=== PATIENT | male | born 1955 | race Caucasian/White ===

== ENCOUNTER 2016-04-08 13:48 | Emergency (ER) | payer OTHER ==
[~2016-04-08] VITALS: Ht 185.4 cm; Wt 96.0 kg
[2016-04-08] VITALS (7 sets, daily range): BP systolic 144–202; BP diastolic 62–98; PULSE 66–96; RESP 14–18; TEMP 98.2; O2SAT 97–99
[~2016-04-08 13:48] MED LIST: ALL5TAB5 PO; CIPR5SUS; FLUT1SPR9; PRED20 PO; SOOTDRO2 RIGHT EYE; VALA500T PO
[2016-04-08] MEDS ORDERED: ALPR.25 PO (16:08)
--- NOTE | 2016-04-08 16:21 | PD ---
HPI Chief Complaint: Back/ Neck Pain or Injury Time Seen by Provider: 16:18 Travel History International Travel<30 days: No Contact w/Intl Traveler<30days: No Traveled to known affect area: No History of Present Illness HPI 60-year-old male came to the emergency room with history of hypertension. Patient has been having neck pain for past week and a half. He has history of cervical DJD which has flared up over past week and a half when he was lifting some heavy boxes. Since then the pain has been progressively worsening. He is having trouble moving his head due to the pain. This morning he went to the urgent care for it. They sent him home with prescription of steroid and Motrin. However when they did the vital signs his blood pressure was 185 systolic. They mentioned to him about the blood pressure and asked him to keep a check on it. Patient brought a blood pressure machine from pharmacy and went home and checked and it was 177. Being concerned he came to the emergency room. Patient's blood pressure was 200 systolic in triage. He does not have a known history of hypertension. No history of chest pain or blurred vision. He seems anxious and in discomfort from his neck. Patient has been taking at home Advil for his neck pain for past week and a half. He is wearing a soft collar that he bought from the pharmacy to relieve his neck pain. [facility] Past Medical History Narrative Medical List of his past medical history as reviewed from the nursing note. 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 Reported Meds & Prescriptions Reported Meds & Active Scripts Active Flexeril (Cyclobenzaprine HCl) 10 Mg Tab 10 Mg PO TID Percocet (Oxycodone-Acetaminophen) 5-325 mg Tab 1 Tab PO Q6H PRN Reported Xanax (Alprazolam) 0.25 Mg Tab 0.25 Mg PO Q8H PRN Narrative Medication List of his home medications reviewed from the nursing note. Review of Systems Except as stated in HPI: all other systems reviewed are Neg Physical Exam Narrative GENERAL: Awake, alert, anxious, moderate distress SKIN: Warm and dry. HEAD: Atraumatic. Normocephalic. EYES: Pupils equal and round. No scleral icterus. No injection or drainage. ENT: No nasal bleeding or discharge. Mucous membranes pink and moist. NECK: Trachea midline. No JVD. There is a soft tissue swelling on the base of his neck on the right side. This is nonpulsatile, soft, no bruit, nontender CARDIOVASCULAR: Regular rate and rhythm. No murmur appreciated. RESPIRATORY: No accessory muscle use. Clear to auscultation. Breath sounds equal bilaterally. GASTROINTESTINAL: Abdomen soft, non-tender, nondistended. Hepatic and splenic margins not palpable. MUSCULOSKELETAL: No obvious deformities. No clubbing. No cyanosis. No edema. Torticollis of his neck with restricted range of motion due to pain. NEUROLOGICAL: Awake and alert. No obvious cranial nerve deficits. Motor grossly within normal limits. Normal speech. 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 Data Data Last Documented VS Vital Signs Date Time Temp Pulse Resp B/P Pulse Ox O2 Delivery O2 Flow Rate FiO2 04/08/16 21:10 16 04/08/16 20:44 76 146/86 98 Room Air 04/08/16 13:51 98.2 Orders Complete Blood Count With Diff (04/08/16 16:39) Basic Metabolic Panel (Bmp) (04/08/16 16:39) Ct Cerv Spine W/O Contrast (04/08/16 ) Metoprolol Tartrate (Lopressor) (04/08/16 16:45) Sodium Chlorid 0.9% 500 Ml Inj (Ns 500 M (04/08/16 16:45) Acetamin-Hydrocod 325-5 Mg ([place] 5-325 (04/08/16 16:45) Mri C Spine W/O Contrast (04/08/16 ) Labs Laboratory Tests Test 04/08/16 16:44 White Blood Count 8.8 TH/MM3 Red Blood Count 4.96 MIL/MM3 Hemoglobin 14.9 GM/DL Hematocrit 43.6 % Mean Corpuscular Volume 87.8 FL Mean Corpuscular Hemoglobin 29.9 PG Mean Corpuscular Hemoglobin 34.1 % Concent Red Cell Distribution Width 13.6 % Platelet Count 279 TH/MM3 Mean Platelet Volume 9.0 FL Neutrophils (%) (Auto) 88.4 % Lymphocytes (%) (Auto) 9.3 % Monocytes (%) (Auto) 1.8 % Eosinophils (%) (Auto) 0.1 % Basophils (%) (Auto) 0.4 % Neutrophils # (Auto) 7.8 TH/MM3 Lymphocytes # (Auto) 0.8 TH/MM3 Monocytes # (Auto) 0.2 TH/MM3 Eosinophils # (Auto) 0.0 TH/MM3 Basophils # (Auto) 0.0 TH/MM3 CBC Comment DIFF FINAL Differential Comment Sodium Level 137 MEQ/L Potassium Level 4.3 MEQ/L Chloride Level 105 MEQ/L Carbon Dioxide Level 26.8 MEQ/L Anion Gap 5 MEQ/L Blood Urea Nitrogen 19 MG/DL Creatinine 1.01 MG/DL Estimat Glomerular Filtration 76 ML/MIN Rate Random Glucose 103 MG/DL Calcium Level 9.4 MG/DL MDM Medical Decision Making Medical Screen Exam Complete: Yes Emergency Medical Condition: Yes Medical Record Reviewed: Yes Differential Diagnosis Essential hypertension, anxiety, herniated disc of C-spine, DJD of C-spine Narrative Course 5:24 PM awaiting for the blood tests and CT scan. Case is signed over to the oncoming ER physician. Procedures EKG Prior to Arrival: No Scripts Cyclobenzaprine (Flexeril)10 Mg Tab10 Mg PO TID #20 TAB Ref 0 Prov:Glenn Britton MD 04/08/16 Oxycodone-Acetaminophen (Percocet)5-325 mg Tab1 Tab PO Q6H PRN (PAIN) #15 TAB Ref 0 Prov:Glenn Britton MD 04/08/16 Rita Murillo MD Apr 08, 2016 16:21
[2016-04-08] MEDS ORDERED: METOPROLOL TARTRATE 25 MG TAB PO ONE (16:45)
[2016-04-08] MEDS ORDERED: SODIUM CHLORID 0.9% 500 ML INJ 500 ML IV ONE (16:45)
[2016-04-08] MEDS ORDERED: ACETAMINOPHEN/HYDROcodone 325 MG/5 MG TAB PO ONE (16:45)
[2016-04-08 17:02] LABS: AUTOMATED NEUTROPHIL # 7.8 TH/MM3 (1.8-7.7); BASOPHIL % 0.4 % (0.0-2.0); EOSINOPHIL % 0.1 % (0.0-4.0); HEMATOCRIT 43.6 % (39.0-51.0); HEMO FLAGS DIFF FINAL; LYMPH % 9.3 % (9.0-44.0); LYMPHOCYTE # 0.8 TH/MM3 (1.0-4.8); MEAN CELL VOLUME 87.8 FL (80.0-100.0); MEAN CORPUSCULAR HEMOGLOBIN 29.9 PG (27.0-34.0); MEAN CORPUSCULAR HGB CONC 34.1 % (32.0-36.0); MONO % 1.8 % (0.0-8.0); NEUT % 88.4 % (16.0-70.0); PLATELET COUNT 279 TH/MM3 (150-450); RED BLOOD COUNT 4.96 MIL/MM3 (4.50-5.90); RED CELL DISTRIBUTION WIDTH 13.6 % (11.6-17.2); WHITE BLOOD COUNT 8.8 TH/MM3 (4.0-11.0)
--- NOTE | 2016-04-08 17:20 | RADRPT ---
EXAM DATE/TIME: 04/08/2016 16:59 [facility] COMPARISON: No previous studies available for comparison. INDICATIONS : High blood pressure with neck pain. RADIATION DOSE: 21.50 CTDIvol (mGy) MEDICAL HISTORY : Cerebrovascular disease. Hepatitis A. Wilber Palsy. SURGICAL HISTORY : None. ENCOUNTER: Initial ACUITY: 1 day PAIN SCALE: 5/10 LOCATION: neck TECHNIQUE: Volumetric scanning of the cervical spine was performed. Multiplanar reconstructions in the sagittal, coronal and oblique axial planes were performed. Using automated exposure control and adjustment o f the mA and/or kV according to patient size, radiation dose was kept as low as reasonably achievable to obtain optimal diagnostic quality images. FINDINGS: VERTEBRAE: Normal vertebral body height. DISCS: There are mild degenerative changes at the C5-6 level with mild disc space narrowing and slight anter ior spurring. ALIGNMENT: No evidence of subluxation. C2-C3: The bony spinal canal is normal in size. No evidence of disc bulge or herniation. The neural forami na are bilaterally patent. C3-C4: There is a large apparent broad-based disc protrusion greatest in the right parasagittal region measu ring up to approximately 1.5 cm across the base and a 5-6 mm in AP diameter with mass effect on the r ight side of the thecal sac. The neural foramina are patent. C4-C5: There is a moderate sized posterior central protrusion measuring approximately 1 cm across the base a nd 3-4 mm in AP diameter with mass effect on the anterior thecal sac. Neural foramina are patent. C5-C6: There is a mild disc osteophyte complex with mild flattening of the anterior thecal sac. The neural f oramina are bilaterally patent. C6-C7: The bony spinal canal is normal in size. No evidence of disc bulge or herniation. The neural forami na are bilaterally patent. C7-T1: The bony spinal canal is normal in size. No evidence of disc bulge or herniation. The neural forami na are bilaterally patent. CONCLUSION: 1. Large posterior central and right paracentral protrusion at the C3-4 level with mass effect on the right side of the thecal sac. 2. Moderate sized posterior central protrusion at C4-5 with mass effect on the anterior thecal sac. 3. Mild disc osteophyte complex at C5-6 with mild mass effect on the anterior thecal sac. Diego Mccormick MD on April 08, 2016 at 17:12 Board Certified Radiologist. This report was verified electronically.
[2016-04-08 17:29] LABS: BICARBONATE 26.8 MEQ/L (21.0-32.0); POTASSIUM 4.3 MEQ/L (3.5-5.1)
--- NOTE | 2016-04-08 18:23 | PD ---
Data Data Last Documented VS Vital Signs Date Time Temp Pulse Resp B/P Pulse Ox O2 Delivery O2 Flow Rate FiO2 04/08/16 20:44 76 16 146/86 98 Room Air 04/08/16 13:51 98.2 Orders Complete Blood Count With Diff (04/08/16 16:39) Basic Metabolic Panel (Bmp) (04/08/16 16:39) Ct Cerv Spine W/O Contrast (04/08/16 ) Metoprolol Tartrate (Lopressor) (04/08/16 16:45) Sodium Chlorid 0.9% 500 Ml Inj (Ns 500 M (04/08/16 16:45) Acetamin-Hydrocod 325-5 Mg ([place] 5-325 (04/08/16 16:45) Mri C Spine W/O Contrast (04/08/16 ) Labs Laboratory Tests Test 04/08/16 16:44 White Blood Count 8.8 TH/MM3 Red Blood Count 4.96 MIL/MM3 Hemoglobin 14.9 GM/DL Hematocrit 43.6 % Mean Corpuscular Volume 87.8 FL Mean Corpuscular Hemoglobin 29.9 PG Mean Corpuscular Hemoglobin 34.1 % Concent Red Cell Distribution Width 13.6 % Platelet Count 279 TH/MM3 Mean Platelet Volume 9.0 FL Neutrophils (%) (Auto) 88.4 % Lymphocytes (%) (Auto) 9.3 % Monocytes (%) (Auto) 1.8 % Eosinophils (%) (Auto) 0.1 % Basophils (%) (Auto) 0.4 % Neutrophils # (Auto) 7.8 TH/MM3 Lymphocytes # (Auto) 0.8 TH/MM3 Monocytes # (Auto) 0.2 TH/MM3 Eosinophils # (Auto) 0.0 TH/MM3 Basophils # (Auto) 0.0 TH/MM3 CBC Comment DIFF FINAL Differential Comment Sodium Level 137 MEQ/L Potassium Level 4.3 MEQ/L Chloride Level 105 MEQ/L Carbon Dioxide Level 26.8 MEQ/L Anion Gap 5 MEQ/L Blood Urea Nitrogen 19 MG/DL Creatinine 1.01 MG/DL Estimat Glomerular Filtration 76 ML/MIN Rate Random Glucose 103 MG/DL Calcium Level 9.4 MG/DL MDM Supervised Visit with GIGI: No Narrative Course The patient was initially evaluated by the previous provider and signed out to me at the beginning of my shift pending labs, CT neck, and disposition. See her note for further details. Briefly this is a 60-year-old male who initially went to an urgent care facility for 1.5 weeks of neck pain. The patient reportedly has history of severe degenerative disc disease in his neck which she was told about 5 years ago at another institution and was told that he should have surgery for it. About 1.5 weeks ago the patient was lifting some heavy boxes and since then he has been having worsening neck pain. He occasionally has paresthesias down his left arm. No arm weakness. At the urgent care facility they gave him steroids and ibuprofen, however they noticed his blood pressure was elevated and referred him to the emergency department for further evaluation. Patient denies history of hypertension and is not on any antihypertensive medications. He was given a dose of Lopressor by the previous provider. He has been taking a significant amount of ibuprofen for his neck pain and there was concern for some renal insufficiency. Initial vital signs show heart rate 96, blood pressure 202/98, pulse ox 97% on room air, oral temp of 98.2F. Blood pressure improved to 160/67 after Lopressor. On my exam the patient is resting comfortably. There are no focal neurologic deficits. No nuchal rigidity. He has not had fever. CBC shows WBC 8.8, hemoglobin 14.9, hematocrit 43.6, platelets 279, neutrophils 88%. BMP is markable for BUN 19, creatinine 1.01, GFR 76, otherwise unremarkable. CT cervical spine without contrast: CONCLUSION: 1. Large posterior central and right paracentral protrusion at the C3-4 level with mass effect on the right side of the thecal sac. 2. Moderate sized posterior central protrusion at C4-5 with mass effect on the anterior thecal sac. 3. Mild disc osteophyte complex at C5-6 with mild mass effect on the anterior thecal sac. The patient was made aware of all findings. Case discussed with on-call neurosurgical attending Dr. Aguero who recommends MRI of the C-spine for further investigation. The patient is amenable to this plan. MRI C spine: CONCLUSION: 1. At C3-4 there is a fairly large broad-based right paracentral disc protrusion with compression of the right hemicord. 2. At C4-5 there is a focal central disc protrusion with mild compression on the anterior surface of the cord. 3. At C5-6 there is a mild right paracentral disc protrusion with mild AP canal stenosis and minimal cord flattening. 4. At C6-7 is a broad-based posterior disc protrusion with mild AP canal stenosis and mild flattening of the cord. 5. No fracture or spondylolisthesis. No definite cord signal abnormalities Case discussed again with on-call neurosurgical attending Dr. Aguero. Patient is actually feeling a lot better after receiving pain medication. He has normal muscle strength in bilateral upper extremities and normal hand flesher strength. No paresthesias. No nuchal rigidity. At this point Dr. Aguero recommends starting the patient on a Medrol Dosepak and muscle relaxants and follow-up with him in his office this week as an outpatient. The patient already has a prescription for Medrol Dosepak that was given to him at the urgent care facility today. I will give him a prescription for muscle relaxant and pain medication. He was made aware of all findings and is amenable to the plan. He was informed on when to return to the emergency department. Diagnosis Primary Impression: Cervical neck pain with evidence of disc disease Additional Impression: Elevated blood pressure reading Referrals: Prasanna Aguero MD 1 week Primary Care Physician 3 days Additional Instruction: Follow-up with neurosurgeon Dr. Aguero this week. Follow-up with your primary care physician regarding your elevated blood pressure. Return to the emergency department forcing symptoms or any other concerns as discussed. Scripts Cyclobenzaprine (Flexeril)10 Mg Tab10 Mg PO TID #20 TAB Ref 0 Prov:Glenn Britton MD 04/08/16 Oxycodone-Acetaminophen (Percocet)5-325 mg Tab1 Tab PO Q6H PRN (PAIN) #15 TAB Ref 0 Prov:Glenn Britton MD 04/08/16 Disposition: 01 DISCHARGE HOME Condition: Stable Glenn Britton MD Apr 08, 2016 18:22
--- NOTE | 2016-04-08 20:36 | RADRPT ---
EXAM DATE/TIME: 04/08/2016 19:15 [facility] COMPARISON: No previous studies available for comparison. INDICATIONS : Pain. NKI. MEDICAL HISTORY : Hypertension. Cancino's palsy. SURGICAL HISTORY : None. ENCOUNTER: Initial ACUITY: 1 day PAIN SCORE: 0/10 LOCATION: neck TECHNIQUE: Multiplanar, multisequence MRI examination of the cervical spine was performed. FINDINGS: VERTEBRAE: Normal vertebral body height. Homogeneous marrow signal. ALIGNMENT: No evidence of subluxation. CORD: Normal configuration and signal. POST FOSSA: The cerebellar tonsils are normal in position. C2-C3: The thecal sac has a normal configuration. There is no evidence of disc herniation or spinal canal s tenosis. The neural foramina are patent bilaterally. C3-C4: There is a large right-sided paracentral disc protrusion with lateral recess stenosis and compression on the anterior cord, especially the right hemicord. C4-C5: There is a moderate central disc protrusion with mild impression on the anterior surface of the cord. C5-C6: Mild right paracentral disc protrusion is mild stenosis of the right lateral recess. Mild AP canal st enosis. C6-C7: Broad-based posterior disc protrusion with mild impression on the anterior cord and mild AP canal sammy nosis. C7-T1: The thecal sac has a normal configuration. There is no evidence of disc herniation or spinal canal s tenosis. The neural foramina are patent bilaterally. CONCLUSION: 1. At C3-4 there is a fairly large broad-based right paracentral disc protrusion with compression of the right hemicord. 2. At C4-5 there is a focal central disc protrusion with mild compression on the anterior surface of the cord. 3. At C5-6 there is a mild right paracentral disc protrusion with mild AP canal stenosis and minimal cord flattening. 4. At C6-7 is a broad-based posterior disc protrusion with mild AP canal stenosis and mild flattening of the cord. 5. No fracture or spondylolisthesis. No definite cord signal abnormalities Severo Whaley MD on April 08, 2016 at 20:28 Board Certified Radiologist. This report was verified electronically.
[2016-04-08] MEDS ORDERED: CYCL1TAB29 PO (21:01)
[2016-04-08] MEDS ORDERED: PERC5TAB12 PO (21:01)
[2016-04-23] MEDS ORDERED: IBUP200C PO (12:42)
[2016-04-23] MEDS ORDERED: LISI10TA3 PO (12:42)
== END 2016-04-08 21:25 | disposition home or self-care (01) ==
LOC: NEPD 13:48 → NEPB 21:25
DX: R03.0 Elevated blood-pressure reading, without diagnosis of hypertension (principal); M54.2 Cervicalgia; B15.9 Hepatitis A without hepatic coma; Z87.891 Personal history of nicotine dependence; M50.30 Other cervical disc degeneration, unspecified cervical region
CPT/HCPCS: 72125; 72141; 80048; 85025; 96360; 99284; J7040